=== PATIENT | female | born 2000 | race Caucasian/White ===

== ENCOUNTER 2019-05-15 17:54 | Outpatient (CLI) | payer BC ==
[~2019-05-15] VITALS: Ht 160 cm; Wt 74.2 kg
[~2019-05-15 17:54] MED LIST: CIPR500T4 PO; IBUP-1542 PO
[2019-05-15 21:45] VITALS: Ht 160 cm; Wt 74.2 kg
[2019-05-15 21:46] VITALS: BP 112/66; PULSE 92; RESP 18
== END 2019-05-16 02:20 | disposition home or self-care (01) ==
LOC: OBT 17:54 → L-D 17:55 → OBT 05-16 02:20
PROVIDERS: ATTEND Obstetrics & Gynecology
DX: O46.93 Antepartum hemorrhage, unspecified, third trimester (principal); Z3A.38 38 weeks gestation of pregnancy
CPT/HCPCS: 76818; 86850; 86885; 86900; 86901; G0463; J2790

== ENCOUNTER 2019-05-24 08:00 | Inpatient (IN) | payer BC ==
[~2019-05-24] VITALS: Ht 160 cm; Wt 76.0 kg
[2019-05-24] MEDS ORDERED: LACTATED RINGER'S 1,000 ML IV PRN (08:54)
[2019-05-24] MEDS ORDERED: CARBOPROST 250 MCG INJ IM PRN (09:00)
[2019-05-24] MEDS ORDERED: METHYLERGONOVINE 0.2 MG INJ IM PRN (09:00)
[2019-05-24] MEDS ORDERED: MISOPROSTOL 200 MCG TAB PR PRN (09:00)
[2019-05-24] MEDS ORDERED: IBUPROFEN 600 MG TAB PO PRN (09:00)
[2019-05-24] MEDS ORDERED: BUTORPHANOL 2 MG INJ IV PRN (09:00)
[2019-05-24] MEDS ORDERED: OXYTOCIN 30 UNITS/LR 500 ML IV PRN (09:00)
[2019-05-24] MEDS ORDERED: MINERAL OIL LIGHT 10 ML VIAL TOP PRN (09:00)
[2019-05-24] MEDS ORDERED: OXYTOCIN 30 UNITS/LR 500 ML IV SCH ×2 (09:00)
[2019-05-24] MEDS ORDERED: LIDOCAINE 1% (MPF) 30 ML INJ INJ PRN (09:00)
[2019-05-24 11:24] VITALS: Ht 160 cm; Wt 76.0 kg
[2019-05-24] MEDS ORDERED: AMPICILLIN 2 GM/NS (PMX) 100 ML IVPB ONE (11:30)
[2019-05-24] MEDS: LACTATED RINGER'S 1,000 ML IV SCH ×2 (11:55→19:42)
[2019-05-24] MEDS: MISOPROSTOL 50 MCG CAPSULE PO SCH ×3 (11:55→20:35)
[2019-05-24] MEDS: AMPICILLIN 1 GM/NS (PMX) 50 ML IVPB SCH ×2 (16:02→20:35)
[2019-05-25] MEDS: AMPICILLIN 1 GM/NS (PMX) 50 ML IVPB SCH ×7 (00:35→23:15)
[2019-05-25] MEDS: MISOPROSTOL 50 MCG CAPSULE PO SCH ×5 (05:00→13:00)
[2019-05-25] MEDS: LACTATED RINGER'S 1,000 ML IV SCH ×3 (05:49→16:54)
[2019-05-25] MEDS ORDERED: OXYTOCIN 30 UNITS/LR 500 ML IV SCH (14:30)
[2019-05-25] MEDS ORDERED: FENTAnyl 2MCG/ML-ROPIV 0.2% 100 ML ONE (18:19)
[2019-05-25] MEDS ORDERED: NALOXONE (0.4 MG/ML) INJ IV PRN (19:00)
[2019-05-25] MEDS ORDERED: ONDANSETRON 4 MG INJ IV PRN (19:00)
[2019-05-25] MEDS ORDERED: SOD CHLORIDE 0.9% 1,000 ML IV PRN (19:30)
[2019-05-26] MEDS: FENTAnyl 2MCG/ML-ROPIV 0.2% 100 ML BAG EPI SCH ×2 (02:35→10:46)
[2019-05-26] MEDS: AMPICILLIN 1 GM/NS (PMX) 50 ML IVPB SCH ×3 (02:37→10:45)
[2019-05-26] MEDS: LACTATED RINGER'S 1,000 ML IV SCH (02:39)
[2019-05-26] MEDS: ACETAMINOPHEN 325 MG TAB PO PRN ×2 (04:57→12:53)
[2019-05-26] MEDS ORDERED: GENTAMICIN 120 MG/NS (PMX) 100 ML IVPB ONE (05:00)
[2019-05-26] MEDS ORDERED: GENTAMICIN 80 MG/NS (PMX) 50 ML IVPB SCH (13:00)
[2019-05-26] MEDS ORDERED: DIPHENHYDRAMINE 50 MG INJ ONE (14:50)
[2019-05-26] MEDS ORDERED: DIPHENHYDRAMINE 50 MG INJ IV ONE (15:00)
[2019-05-26] MEDS ORDERED: AZITHROMYCIN 500MG/NS (PMX) 250 ML IVPB ONE (15:00)
[2019-05-26] MEDS ORDERED: ACETAMINOPHEN 500 MG TAB PO STA (18:01)
[2019-05-26] MEDS ORDERED: KETOROLAC 30 MG INJ IV STA (18:01)
[2019-05-26] MEDS ORDERED: ZOLPIDEM 5 MG TAB PO PRN (18:30)
[2019-05-26] MEDS ORDERED: LANOLIN HPA 1 PKT TOP PRN (18:30)
[2019-05-26] MEDS ORDERED: HYDROCODONE/APAP (5/325) TAB PO PRN ×2 (18:30)
[2019-05-26] MEDS ORDERED: CARBOPROST 250 MCG INJ IM PRN (18:30)
[2019-05-26] MEDS ORDERED: MISOPROSTOL 200 MCG TAB PR PRN (18:30)
[2019-05-26] MEDS ORDERED: OXYTOCIN 30 UNITS/LR 500 ML IV PRN (18:30)
[2019-05-26] MEDS ORDERED: DIBUCAINE 1% 30 GM OINT TOP PRN (18:30)
[2019-05-26] MEDS ORDERED: WITCH HAZEL/GLYCERIN PAD PR PRN (18:30)
[2019-05-26] MEDS ORDERED: METHYLERGONOVINE 0.2 MG INJ IM PRN (18:30)
[2019-05-26] MEDS: AMPICILLIN/SULB 3 GM/NS (PMX) 100 ML IVPB SCH (20:11)
[2019-05-26 20:20] VITALS: BP 118/69; PULSE 78; RESP 18
[2019-05-26 21:00] VITALS: BP 107/63; PULSE 83; RESP 18
[2019-05-26] MEDS: MAGNESIUM HYDROXIDE 30ML CUP PO SCH (21:18)
[2019-05-26] MEDS: BENZOCAINE 20% 56 ML SPRAY TOP PRN (21:18)
[2019-05-26] MEDS: SENNA/DOCUSATE NA (8.6MG/50MG) TAB PO SCH (21:18)
[2019-05-26] MEDS: LACTATED RINGER'S 1,000 ML IV* SCH (23:44)
[2019-05-26] MEDS: IBUPROFEN 600 MG TAB PO SCH (23:45)
[2019-05-27] VITALS: BP 99/61; PULSE 72; RESP 20
[2019-05-27] MEDS: AMPICILLIN/SULB 3 GM/NS (PMX) 100 ML IVPB SCH ×4 (02:01→20:11)
[2019-05-27] MEDS: LACTATED RINGER'S 1,000 ML IV* SCH ×3 (02:19→18:19)
[2019-05-27 04:00] VITALS: BP 99/57; PULSE 74; RESP 18
[2019-05-27] MEDS: IBUPROFEN 600 MG TAB PO SCH ×4 (05:50→23:48)
[2019-05-27 08:00] VITALS: BP 95/52; PULSE 70; RESP 16
[2019-05-27] MEDS: MAGNESIUM HYDROXIDE 30ML CUP PO SCH ×2 (08:27→21:21)
[2019-05-27] MEDS: SENNA/DOCUSATE NA (8.6MG/50MG) TAB PO SCH ×2 (08:27→21:21)
[2019-05-27 16:25] VITALS: BP 110/58; PULSE 80
[2019-05-27] MEDS ORDERED: AMPICILLIN/SULB 3 GM/NS (PMX) 100 ML IVPB SCH (19:00)
[2019-05-27 20:00] VITALS: BP 101/53; PULSE 81; RESP 19
[2019-05-28] MEDS: AMPICILLIN/SULB 3 GM/NS (PMX) 100 ML IVPB SCH ×3 (03:50→16:18)
[2019-05-28 04:00] VITALS: BP 99/58; PULSE 74
[2019-05-28] MEDS: IBUPROFEN 600 MG TAB PO SCH ×3 (05:56→18:00)
[2019-05-28 08:30] VITALS: BP 107/58; PULSE 80; RESP 18
[2019-05-28] MEDS: MAGNESIUM HYDROXIDE 30ML CUP PO SCH ×2 (09:00→21:00)
[2019-05-28] MEDS: SENNA/DOCUSATE NA (8.6MG/50MG) TAB PO SCH ×2 (09:00→21:00)
[2019-05-28] MEDS ORDERED: DIPHTH/TET/ACEL PERTUSS (ADULT) 0.5 ML VIAL IM* ONE (09:00)
[2019-05-28] MEDS ORDERED: MEASLES,MUMPS,RUBELLA VACCINE INJ SC* ONE (09:00)
[2019-05-28] MEDS ORDERED: VARICELLA VACCINE LIVE/PF 1,350 UNIT/0.5 ML ML SC* ONE (09:00)
[2019-05-28] MEDS: LACTATED RINGER'S 1,000 ML IV* SCH ×2 (10:19→18:19)
[2019-05-28 12:00] VITALS: BP 100/54; PULSE 81; RESP 18
[2019-05-28 16:46] VITALS: BP 118/71; PULSE 87; RESP 18
[2019-05-28] MEDS: CIPROFLOXACIN 400MG/D5W 200 ML IVPB SCH ×2 (19:30→21:00)
[2019-05-28 19:40] VITALS: BP 111/71; PULSE 76; RESP 20
[2019-05-29] MEDS: IBUPROFEN 600 MG TAB PO SCH ×4 (00:05→18:00)
[2019-05-29] MEDS: LACTATED RINGER'S 1,000 ML IV* SCH (02:19)
[2019-05-29 03:59] VITALS: BP 115/57; PULSE 89; RESP 19
[2019-05-29] MEDS: CIPROFLOXACIN 400MG/D5W 200 ML IVPB SCH ×2 (07:39→19:02)
[2019-05-29 08:00] VITALS: BP 110/64; PULSE 81; RESP 18
[2019-05-29] MEDS: MAGNESIUM HYDROXIDE 30ML CUP PO SCH ×3 (09:00→21:00)
[2019-05-29] MEDS: SENNA/DOCUSATE NA (8.6MG/50MG) TAB PO SCH ×2 (09:00→21:00)
[2019-05-29] MEDS: SENNA TAB PO SCH ×2 (13:00→21:00)
[2019-05-29] MEDS: FERROUS SULFATE (EC) 325 MG TAB PO SCH (13:23)
[2019-05-29] MEDS: PRENATAL VITAMIN PO SCH (13:23)
[2019-05-29 16:49] VITALS: BP 106/56; PULSE 101; RESP 18
[2019-05-29] MEDS: LACTATED RINGER'S 1,000 ML IV SCH (19:02)
[2019-05-29 19:40] VITALS: BP 117/71; PULSE 92; RESP 20
[2019-05-30] MEDS: IBUPROFEN 600 MG TAB PO SCH ×4 (00:11→19:29)
[2019-05-30] MEDS: BENZOCAINE 20% 56 ML SPRAY TOP PRN (00:11)
[2019-05-30] MEDS: LACTATED RINGER'S 1,000 ML IV SCH (03:00)
[2019-05-30 04:00] VITALS: BP 106/62; PULSE 80; RESP 20
[2019-05-30] MEDS: CIPROFLOXACIN 400MG/D5W 200 ML IVPB SCH (07:33)
[2019-05-30 08:00] VITALS: BP 110/64; PULSE 99; RESP 16
[2019-05-30] MEDS: SENNA TAB PO SCH (08:56)
[2019-05-30] MEDS: MAGNESIUM HYDROXIDE 30ML CUP PO SCH (08:56)
[2019-05-30] MEDS: SENNA/DOCUSATE NA (8.6MG/50MG) TAB PO SCH (08:57)
[2019-05-30] MEDS: FERROUS SULFATE (EC) 325 MG TAB PO SCH (10:51)
[2019-05-30] MEDS: PRENATAL VITAMIN PO SCH (10:51)
[2019-05-30] MEDS ORDERED: CIPROFLOXACIN 500 MG TAB PO SCH (18:00)
== END 2019-05-30 20:20 | disposition home or self-care (01) | DRG 805 ==
LOC: L-D 08:17 → PP1 05-26 20:25
PROVIDERS: ADMIT Obstetrics & Gynecology; ATTEND Obstetrics & Gynecology
PROC: 10E0XZZ Delivery of Products of Conception, External Approach (ICD-10-PCS; principal; 2019-05-26)
PROC: 0UQMXZZ Repair Vulva, External Approach (ICD-10-PCS; 2019-05-26)
DX: O48.0 Post-term pregnancy (principal); O41.1230 Chorioamnionitis, third trimester, not applicable or unspecified; O71.82 Other specified trauma to perineum and vulva; Z37.0 Single live birth; Z3A.40 40 weeks gestation of pregnancy
CPT/HCPCS: 62322; 76815; 83605; 85025; 85610; 85730; 86592; 86850; 86870; 86885; 86900; 86901; 87070; 87340; 88307; 90716; 93005; J0290; J0295; J0456; J0595; J0744; J1200; J1580; J1885; J2590; J2790; J3010; J7120